=== PATIENT | male | born 1995 | race Caucasian/White ===

== ENCOUNTER 2022-12-29 00:55 | Emergency (ER) | payer OTHER ==
[~2022-12-29] VITALS: Ht 162.6 cm; Wt 77.1 kg
[2022-12-29 01:00] VITALS: BP 140/90; PULSE 82; RESP 16; TEMP 97.6; O2SAT 100
--- NOTE | 2022-12-29 01:03 | NUR ---
TO LOBBY A/W BED AMBULATORY
[2022-12-29] MEDS ORDERED: KETOROLAC 30 MG/ML VIAL IM ONE (02:30)
[2022-12-29] MEDS ORDERED: ALBUTEROL 0.083% 2.5 MG/3 ML NEBU INH ONE (02:30)
--- NOTE | 2022-12-29 02:44 | NUR ---
PT TO BED4
[2022-12-29 02:48] VITALS: PULSE 67; RESP 18; O2SAT 98
[2022-12-29 03:04] LABS: BASOPHILS # (AUTO) 0.1 K/uL (0.00-0.22); BASOPHILS % (AUTO) 0.7 % (0.0-2.0); EOSINOPHILS # (AUTO) 0.4 K/uL (0-0.4); EOSINOPHILS % (AUTO) 3.9 % (0.0-4.0); HEMATOCRIT 45.4 % (36-52); HEMOGLOBIN 15.3 g/dL (12.0-18.0); LYMPHOCYTES # (AUTO) 3.1 K/uL (2.0-11.5); LYMPHOCYTES % (AUTO) 26.9 % (20.5-51.1); MEAN CORPUSCULAR HEMOGLOBIN 28 pg (27-31); MEAN CORPUSCULAR HGB CONC 34 g/dL (33-37); MEAN CORPUSCULAR VOLUME 82.6 fL (80-94); MONOCYTES # (AUTO) 1.1 K/uL (0.8-1.0); MONOCYTES % (AUTO) 9.3 % (1.7-9.3); NEUTROPHILS # (AUTO) 6.8 K/uL (1.8-7.7); NEUTROPHILS % (AUTO) 59.2 % (42.2-75.2); PLATELET COUNT (AUTO) 324 K/uL (140-450); RED BLOOD CELL COUNT(AUTO) 5.49 MIL/uL (4.20-6.10); RED CELL DISTRIBUTION WIDTH 13.6 % (11.6-13.7); WHITE BLOOD COUNT (AUTO) 11.5 K/uL (4.8-10.8)
[2022-12-29 03:06] LABS: ANION GAP 9.7 (8-16); CARBON DIOXIDE 31.9 mmol/L (21-32); POTASSIUM 3.6 mmol/L (3.5-5.1)
--- NOTE | 2022-12-29 03:06 | NUR ---
RECEIVED IN BED 4 WITH C/O SOB X 2 WEEKS. ALSO C/O PAIN TO BACK OF HEAD. RT HAS BEEN COMPLETED
[2022-12-29 03:45] VITALS: BP 140/90; PULSE 67; RESP 18; TEMP 97.6; O2SAT 98
--- NOTE | 2022-12-29 03:45 | NUR ---
Patient discharged with v/s stable. Written and verbal after care instructions given and explained. Patient verbalized understanding. Ambulatory with steady gait. All questions addressed prior to discharge. Advised to follow up with PMD.
== END 2022-12-29 03:45 | disposition home or self-care (01) ==
LOC: MED 00:55
DX: R06.02 Shortness of breath (principal); R09.89 Other specified symptoms and signs involving the circulatory and respiratory systems
CPT/HCPCS: 36415; 71045; 80048; 84484; 85025; 93005; 94640; 96372; 99285; J1885; J7613